=== PATIENT | female | born 1980 | race American Indian/Alaskan Native ===

== ENCOUNTER 2016-05-03 18:53 | Emergency (ER) | payer MEDICAID ==
[2016-05-03 20:19] VITALS: BP 169/103
--- NOTE | 2016-05-03 20:33 | EDM.PDOC ---
ED HPI Trauma - General Chief Complaint: Upper Extremity Injury/Pain Stated Complaint: LT MIDDLE FINGER Time Seen by Provider: 05/03/16 19:54 Source: Reports: Patient History Limitations: Reports: No limitations - History of Present Illness INITIAL COMMENTS - FREE TEXT/NARRATIVE: History of present illness: [Patient presents with a obvious paronychia of her left middle finger. It is, on the last few days. No fevers or chills.] Review of systems: As per history of present illness and below otherwise all systems reviewed and negative. Past medical history: As per history of present illness and as reviewed below otherwise noncontributory. Surgical history: As per history of present illness and as reviewed below otherwise noncontributory. Social history: No reported history of drug or alcohol abuse. Family history: As per history of present illness and as reviewed below otherwise noncontributory. Physical exam: HEENT: Atraumatic, normocephalic, pupils reactive, negative for conjunctival pallor or scleral icterus, mucous membranes moist, throat clear, neck supple, nontender, trachea midline. Lungs: Clear to auscultation, breath sounds equal bilaterally, chest nontender. Heart: S1S2, regular, negative for clicks, rubs, or JVD. Abdomen: Soft, nondistended, nontender. Negative for masses or hepatosplenomegaly. Negative for costovertebral tenderness. Pelvis: Stable nontender. Genitourinary: Deferred. Rectal: Deferred. Extremities: Examination of the left middle finger reveals a paronychia. There was a bulla present. This was opened with an 18-gauge needle and serous fluid and pus was released Neuro: Awake, alert, oriented. Cranial nerves II through XII unremarkable. Cerebellum unremarkable. Motor and sensory unremarkable throughout. Exam nonfocal. Diagnostics: [] Therapeutics: [] Impression: [Paronychia] Plan: [She is provided with Keflex 500 mg 1 by mouth 4 times a day for 10 days she is to soak the finger 3-4 times a day with warm soaks. Follow up with the clinic if any problems ensue] Definitive disposition and diagnosis as appropriate pending reevaluation and review of above. Allergies/ADRs: Allergies No Known Allergies Allergy (Verified 05/03/16 20:16) Home Medications: Ambulatory Orders NK [No Known Home Meds] 05/03/16 [Confirmed 05/03/16] Past Medical History - Past Health History Medical/Surgical History: Denies Medical/Surgical History Musculoskeletal History: Reports: Fracture Social & Family History - Tobacco Use Smoking Status *Q: Current Every Day Smoker Years of Tobacco use: 20 Packs/Tins Daily: 1 - Caffeine Use Caffeine Use: Reports: Coffee, Soda - Recreational Drug Use Recreational Drug Use: No Review of Systems - Review of Systems Review Of Systems: ROS reveals no pertinent complaints other than HPI. Trauma Exam - Physical Exam Exam: See Below Course - Vital Signs Last Recorded V/S: Last Vital Signs Temp 36.6 C 05/03/16 20:18 Pulse 109 H 05/03/16 20:18 Resp 16 05/03/16 20:18 BP 169/103 H 05/03/16 20:18 Pulse Ox 100 05/03/16 20:18 - Orders/Labs/Meds Orders: Active Orders 24 hr Category Date Time Status Hand Comp Min 3V Lt [CR] Stat Exams 05/03/16 19:55 Ordered Departure - Departure Time of Disposition: 20:32 Disposition: Home, Self-Care 01 Condition: good Clinical Impression: Paronychia Qualifiers: Laterality: left Qualified Code(s): L03.012 - Cellulitis of left finger Forms: ED Department Discharge Additional Instructions: Self-care finger in warm so the water 3-4 times a day. It would be best to stop chewing her fingernails because that is what can cause this. If you're not getting better you should followup with your doctor but with our treatment I think you should have this problem resolved. - My Orders Last 24 Hours: My Active Orders 05/03/16 19:55 Hand Comp Min 3V Lt [CR] Stat - Assessment/Plan Last 24 Hours: My Active Orders 05/03/16 19:55 Hand Comp Min 3V Lt [CR] Stat
== END 2016-05-03 20:40 | disposition home or self-care (01) ==
LOC: JP.ED 18:53
DX: L03.012 Cellulitis of left finger (principal); F17.210 Nicotine dependence, cigarettes, uncomplicated
CPT/HCPCS: 10060; 99283; 99283-25

== ENCOUNTER 2017-03-05 11:15 | Emergency (ER) | payer MEDICAID ==
[2017-03-05 11:47] VITALS: BP 94/48
[2017-03-05] MEDS ORDERED: Acetaminophen/oxyCODONE 325-5 MG Tab PO STA (11:53)
[2017-03-05] MEDS ORDERED: Ketorolac 60 MG/2 ML SDV IM ONE (11:53)
--- NOTE | 2017-03-05 11:58 | EDM.PDOC ---
ED HPI GENERAL MEDICAL PROBLEM - General Chief Complaint: Lower Extremity Injury/Pain Stated Complaint: FALL Time Seen by Provider: 03/05/17 11:50 Source of Information: Reports: Patient History Limitations: Reports: No Limitations - History of Present Illness INITIAL COMMENTS - FREE TEXT/NARRATIVE: 37 yo female slipped on the ice about 2 hrs ago and injured her L knee. Says she heard a pop. Knee now painful and swollen. 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: Other (see below) (none) - Related Data Allergies Allergy/AdvReac Type Severity Reaction Status Date / Time No Known Allergies Allergy Verified 05/03/16 20:16 Home Meds: Home Meds NK [No Known Home Meds] 05/03/16 [History] Past Medical History - Past Health History Medical/Surgical History: Denies Medical/Surgical History Musculoskeletal History: Reports: Fracture Social & Family History - Tobacco Use Smoking Status *Q: Current Every Day Smoker Years of Tobacco use: 9 Packs/Tins Daily: 0.5 - Caffeine Use Caffeine Use: Reports: Coffee, Soda - Recreational Drug Use Recreational Drug Use: No Review of Systems - Review of Systems Review Of Systems: See Below Constitutional: Reports: No Symptoms Musculoskeletal: Reports: Joint Pain, Joint Swelling (L knee) Skin: Reports: No Symptoms Neurological: Reports: No Symptoms ED EXAM, GENERAL - Physical Exam Exam: See Below Exam Limited By: No Limitations General Appearance: Alert, WD/WN, Mild Distress Extremities: Other (L knee with a visible and palpable effusion. No deformity. Skin intact. ) Neurological: Alert, Oriented, CN II-XII Intact, Normal Cognition, No Motor/ Sensory Deficits Psychiatric: Normal Affect, Normal Mood Skin Exam: Warm, Dry, Intact, Normal Color, No Rash Course - Vital Signs Text/Narrative:: Knee immobilizer applied. Pain much better after Toradol 60 mg IM and Percocet 2 po Last Recorded V/S: Last Vital Signs Temp 35.9 C 03/05/17 11:33 Pulse 92 03/05/17 11:33 Resp 14 03/05/17 11:33 BP 94/48 L 03/05/17 11:33 Pulse Ox 95 03/05/17 11:33 - Orders/Labs/Meds Orders: Active Orders 24 hr Category Date Time Status Knee 3V Lt [CR] Stat Exams 03/05/17 11:54 Ordered Meds: Medications Discontinued Medications Generic Name Dose Route Start Last Admin Trade Name Antonette PRN Reason Stop Dose Admin Ketorolac Tromethamine 60 mg 03/05/17 11:53 03/05/17 12:03 Toradol IM 03/05/17 11:54 60 mg ONETIME ONE Administration Oxycodone/Acetaminophen 2 tab 03/05/17 11:53 03/05/17 12:02 Percocet 325-5 Mg PO 03/05/17 11:54 2 tab ONETIME STA Administration - Radiology Interpretation Free Text/Narrative:: L Knee X-ray-soft tissue swelling only. Departure - Departure Time of Disposition: 12:45 Disposition: Home, Self-Care 01 Condition: Fair Clinical Impression: Instability of medial collateral ligament of knee - Discharge Information Referrals: PCP,None [Primary Care Provider] - Forms: ED Department Discharge - My Orders Last 24 Hours: My Active Orders 03/05/17 11:54 Knee 3V Lt [CR] Stat - Assessment/Plan Last 24 Hours: My Active Orders 03/05/17 11:54 Knee 3V Lt [CR] Stat
--- NOTE | 2017-03-07 10:00 | CR ---
Knee 3V Lt INDICATION: injury with swelling FINDINGS: Small knee effusion or synovitis. Mild medial compartment narrowing. Left knee otherwise ne gative.
== END 2017-03-05 13:04 | disposition home or self-care (01) ==
LOC: JP.ED 11:15
DX: M23.52 Chronic instability of knee, left knee (principal); F17.210 Nicotine dependence, cigarettes, uncomplicated
CPT/HCPCS: 73562; 96372; 99283; 99284; A9270; J1885

== ENCOUNTER 2021-02-01 16:11 | Emergency (ER) | payer MEDICAID ==
[2021-02-01 16:20] VITALS: BP 175/109; PULSE 84
[2021-02-01] MEDS ORDERED: Sodium Chloride 0.9% 1,000 ML IV SCH (16:45)
[2021-02-01] MEDS ORDERED: Naloxone 0.4 MG/ML SDV IVPUSH ONE (16:45)
--- NOTE | 2021-02-01 16:56 | EDM.PDOCBH ---
ED HPI GENERAL MEDICAL PROBLEM - General Chief Complaint: Drug or Alcohol Abuse Stated Complaint: MEDICAL VIA [facility] Time Seen by Provider: 02/01/21 16:51 Source of Information: Reports: Patient, EMS, Family History Limitations: Reports: No Limitations - History of Present Illness INITIAL COMMENTS - FREE TEXT/NARRATIVE: pt took herion and fentyl iv today. When she uses she usually smokes it. 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 . She has used some form of drugs since she was 12. She has been through treatment. The last time was about 1 year ago. Onset: Today, Other ( Pt did a line of fentyl and narcan. ) Duration: Hour(s): Location: Reports: Generalized, Other ( she was given 2 amps of narcan at the scene. ) Associated Symptoms: Reports: Other ( drug overdose. ) - Related Data Allergies Allergy/AdvReac Type Severity Reaction Status Date / Time No Known Allergies Allergy Verified 02/01/21 16:22 Home Meds: Home Meds Chlorthalidone 25 mg PO ASDIRECTED 02/01/21 [History] Metoprolol Succinate [Toprol XL 100mg] 100 mg PO DAILY 02/01/21 [History] lisinopriL [Lisinopril] 10 mg PO DAILY 02/01/21 [History] Past Medical History - Past Health History Medical/Surgical History: Denies Medical/Surgical History [employer]IAN History: Reports: Musculoskeletal History: Reports: Fracture Other Musculoskeletal History: arm Psychiatric History: Reports: Addiction - Infectious Disease History Infectious Disease History: Reports: Chicken Pox Social & Family History - Family History Family Medical History: No Pertinent Family History - Tobacco Use Tobacco Use Status *Q: Heavy Tobacco User Years of Tobacco use: 30 Packs/Tins Daily: 1 - Caffeine Use Caffeine Use: Reports: Coffee, Energy Drinks, Soda - Recreational Drug Use Recreational Drug Use: Yes Recreational Drug Type: Reports: Fentanyl, Heroin, Methamphetamine Recreational Drug Use Frequency: Daily ED ROS GENERAL - Review of Systems Review Of Systems: See Below Constitutional: Reports: No Symptoms HEENT: Reports: No Symptoms Respiratory: Reports: Other (pt was quite sedated. ) Cardiovascular: Reports: No Symptoms Endocrine: Reports: No Symptoms GI/Abdominal: Reports: No Symptoms : Reports: No Symptoms Musculoskeletal: Reports: No Symptoms Skin: Reports: No Symptoms ED EXAM, BEHAVIORAL HEALTH - Physical Exam Exam: See Below Text/Narrative:: Pt arrived by ambulance after being found quite sedated. She was given 2 amps of narcan at the scene. She did wake up with this. Exam Limited By: No Limitations General Appearance: Alert, Other (pt does fall asleep easily. ) Ears: Normal TMs Nose: Nasal Deformity Throat/Mouth: Normal Inspection Head: Atraumatic Neck: Normal Inspection Respiratory/Chest: Other (pt is quite sedated. ) Cardiovascular: Regular Rate, Rhythm GI/Abdominal: Soft, Non-Tender (Female) Exam: Deferred Rectal (Female) Exam: Deferred Back Exam: Normal Inspection Extremities: Normal Inspection Neurological: Alert, Normal Cognition, Oriented x 3 COURSE, BEHAVIORAL HEALTH COMP - Course Vital Signs: Last Vital Signs Temp 36.4 C 02/01/21 16:21 Pulse 84 02/01/21 16:21 Resp 20 02/01/21 16:21 BP 175/109 H 02/01/21 16:21 Pulse Ox 97 02/01/21 16:21 Orders, Labs, Meds: Laboratory Tests 02/01/21 02/01/21 Range/Units 17:00 17:00 WBC 14.0 H (4.5-11.0) K/uL RBC 4.49 (3.30-5.50) M/uL Hgb 13.1 D (12.0-15.0) g/dL Hct 38.8 (36.0-48.0) % MCV 86 (80-98) fL MCH 29 (27-31) pg MCHC 34 (32-36) % Plt Count 375 (150-400) K/uL Neut % (Auto) 83.7 H (36-66) % Lymph % (Auto) 9.8 L (24-44) % [place] % (Auto) 4.9 (2-6) % Eos % (Auto) 1.3 L (2-4) % Baso % (Auto) 0.3 (0-1) % Sodium 141 (140-148) mmol/L Potassium 4.7 (3.6-5.2) mmol/L Chloride 105 (100-108) mmol/L Carbon Dioxide 30 (21-32) mmol/L Anion Gap 6.2 (5.0-14.0) mmol/L BUN 14 (7-18) mg/dL Creatinine 0.8 (0.6-1.0) mg/dL Est Cr Clr Drug Dosing 90.90 mL/min Estimated GFR (MDRD) > 60 (>60) Glucose 90 (74-106) mg/dL Calcium 8.8 (8.5-10.1) mg/dL Total Bilirubin 0.3 (0.2-1.0) mg/dL AST 23 (15-37) U/L ALT 40 (12-78) U/L Alkaline Phosphatase 144 H (46-116) U/L Total Protein 7.3 (6.4-8.2) g/dL Albumin 3.6 (3.4-5.0) g/dL Globulin 3.7 H (2.3-3.5) g/dL Albumin/Globulin Ratio 1.0 L (1.2-2.2) Medications Discontinued Medications Generic Name Dose Route Start Last Admin Trade Name Freq PRN Reason Stop Dose Admin Sodium Chloride 1,000 mls @ 999 mls/hr 02/01/21 16:45 Normal Saline IV ASDIRECTED CORY Naloxone HCl 0.4 mg 02/01/21 16:45 02/01/21 17:54 Naloxone 0.4 Mg/Ml Sdv IVPUSH 02/01/21 16:46 0.4 mg ONETIME ONE Administration Medical Clearance: 02/01/21 16:57 Iv was started fluids given. She was given .4 of narcan.-- pt ended up refusing this . She stated that she could do drugs if she wanted to She absolutely would not stay. tHIS WAS NOT A SUICIDAL USAGE BUT RATHER RECREATIONAL. 02/01/21 18:18 Departure - Departure Time of Disposition: 18:40 Disposition: Eloped 07 Clinical Impression: Overdose of fentanyl, Overdose of heroin - Discharge Information Referrals: PCP,None [Primary Care Provider] - Forms: ED Department Discharge Care Plan Goals: PT LEFT ama. Sepsis Event Note (ED) - Evaluation Sepsis Screening Result: No Definite Risk
== END 2021-02-01 18:07 | disposition left against medical advice (07) ==
LOC: JP.ED 16:11
DX: T40.1X1A Poisoning by heroin, accidental (unintentional), initial encounter (principal); T40.411A Poisoning by fentanyl or fentanyl analogs, accidental (unintentional), initial encounter; Z79.899 Other long term (current) drug therapy; Z72.0 Tobacco use
CPT/HCPCS: 36415; 80053; 85025; 96374; 99284; J2310